=== PATIENT | male | born 1980 | race Caucasian/White ===

== ENCOUNTER 2020-07-26 00:30 | Emergency (ER) | payer MEDICAID ==
[~2020-07-26] VITALS: Ht 182.9 cm; Wt 100.0 kg
[2020-07-26] MEDS ORDERED: ketorolac tromethamine 15mg/ml inj. IM ONE (01:00)
[2020-07-26] MEDS ORDERED: oxyCODONE/APAP 10/325mg tablet PO ONE (01:00)
[2020-07-26] MEDS ORDERED: DOXY100C43 PO (01:49)
[2020-07-26] MEDS ORDERED: CefTRIAXone 1000mg IM Kit (w/lidocaine diluent) IM STA (01:50)
[2020-07-26] MEDS ORDERED: DOXYCYCLINE 100MG CAPSULE PO ONE (01:50)
[2020-07-26 02:35] LABS: CLARITY,URINE CLEAR (Clear); COLOR,URINE YELLOW (Yellow); GLUCOSE, URINE NEGATIVE (Neg); KETONES,URINE NEGATIVE (Neg); LEUKOCYTE ESTERASE ,URINE NEGATIVE (Neg); NITRITES, URINE NEGATIVE (Neg); OCCULT BLOOD,URINE NEGATIVE (Neg); PH,URINE 5.5 (4.8-8.0); PROTEIN,URINE NEGATIVE (Neg); UA COLLECTION TYPE URINAL; UROBILINOGEN,URINE 0.2 E.U/dL (0.2-1.0)
[2020-07-26 02:50] VITALS: BP 127/86
== END 2020-07-26 02:51 | disposition home or self-care (01) ==
LOC: ER 00:31
DX: N45.3 Epididymo-orchitis (principal); F12.90 Cannabis use, unspecified, uncomplicated; Z79.2 Long term (current) use of antibiotics
CPT/HCPCS: 36415; 76870; 81003; 87491; 87591; 93976; 96372; 99284; J0696; J1885